=== PATIENT | male | born 1995 | race Two or more races ===

== ENCOUNTER 2020-01-25 11:54 | Emergency (ER) | payer OTHER ==
[~2020-01-25] VITALS: Ht 172.7 cm; Wt 99.8 kg
[2020-01-25] MEDS ORDERED: SODIUM CHLORIDE 0.9% 1,000 ML IV ONE ×2 (12:11)
[2020-01-25] MEDS ORDERED: KETOROLAC TROMETH 30 MG/ML 1ML VIAL IV ONE (12:15)
[2020-01-25] MEDS ORDERED: ONDANSETRON HCL 4 MG/2 ML VIAL IV ONE (12:15)
[2020-01-25] MEDS ORDERED: ONDANSETRON HCL 4 MG/2 ML VIAL IM ONE (14:00)
[2020-01-25] MEDS ORDERED: KETOROLAC TROMETH 60MG/2ML VIAL IM ONE (14:00)
[2020-01-25 14:18] VITALS: BP 127/76
== END 2020-01-25 14:29 | disposition home or self-care (01) ==
LOC: ER 11:54
DX: S33.5XXA Sprain of ligaments of lumbar spine, initial encounter (principal); R10.9 Unspecified abdominal pain; X50.9XXA Other and unspecified overexertion or strenuous movements or postures, initial encounter; Y93.89 Activity, other specified; Y92.89 Other specified places as the place of occurrence of the external cause; Y99.8 Other external cause status
CPT/HCPCS: 74176; 96372; 99284; J1885; J2405

== ENCOUNTER 2020-01-26 18:08 | Emergency (ER) | payer OTHER ==
[~2020-01-26] VITALS: Ht 172.7 cm; Wt 99.8 kg
[2020-01-26 18:22] VITALS: BP 137/98
[2020-01-26] MEDS ORDERED: cefTRIAXone SOD 1,000 MG VL IM ONE (18:30)
== END 2020-01-26 19:31 | disposition left against medical advice (07) ==
LOC: ER 18:08
DX: J02.9 Acute pharyngitis, unspecified (principal); R13.10 Dysphagia, unspecified
CPT/HCPCS: 99281; J0696